=== PATIENT | female | born 1955 | race Caucasian/White ===

== ENCOUNTER 2018-06-15 06:24 | Inpatient (IN) ==
--- NOTE | 2018-05-27 13:43 | PAT Medication Instructions ---
Medication Instructions Date of Service May 27, 2018 Home Medications cetirizine [Zyrtec] 10 mg PO UD PRN cholecalciferol (vitamin D3) 2,000 unit PO DAILY lisinopril 5 mg PO QAM multivitamin [Multiple Vitamins] 1 tab PO DAILY naproxen sodium [Aleve] 220 mg PO UD PRN omeprazole magnesium [Prilosec OTC] 40 mg PO QAM oxycodone-acetaminophen 0.5 tab PO UD PRN ASK your surgeon for instructions naproxen sodium [Aleve] 220 mg PO UD PRN DO NOT take the morning of surgery cetirizine [Zyrtec] 10 mg PO UD PRN cholecalciferol (vitamin D3) 2,000 unit PO DAILY lisinopril 5 mg PO QAM multivitamin [Multiple Vitamins] 1 tab PO DAILY Take morning of surgery With a small sip of water, OTHERWISE NOTHING TO EAT OR DRINK AFTER MIDNIGHT: omeprazole magnesium [Prilosec OTC] 40 mg PO QAM oxycodone-acetaminophen 0.5 tab PO UD PRN (okay to take up to 4 hours prior to surgery if needed) Other Notes If you have any questions please call us at [phone] or [phone] or [phone] or [phone]
--- NOTE | 2018-05-30 09:21 | Anesthesiology Consultation ---
Date of Service May 30, 2018 Assessment & Plan (1) Encounter for pre-operative examination: Chart Review Chart Review: Acceptable Risk for Surgery and Patient seen in Pre Admission Testing Teaching & Discussion Pre-Anesthesia Teaching/Discussion Notes: Instructed NPO after midnight before surgery,except medications with 15 cc of water. Medication instructions provided according to the PAT guidelines. History Surgery Operation Date: 06/15/18 07:15 Proposed Procedures p Left Total Shoulder Replacement - Jagjit Scott, Height/Weight Height: 5 ft 5 in Weight: 85.3 kg Allergies Allergy/AdvReac Type Severity Reaction Status Date / Time Sulfa (Sulfonamide Allergy Severe "SULFA Verified 09/27/15 12:57 Antibiotics) DRUGS": ITCHING, HIVES nitrofurantoin AdvReac Unknown Nausea Unverified 05/18/18 11:24 Medications Home Medications Medication Instructions Recorded Confirmed Last Taken cetirizine [Zyrtec] 10 mg PO UD PRN 05/18/18 05/18/18 Unknown cholecalciferol (vitamin D3) 2,000 unit PO DAILY 05/18/18 05/18/18 Unknown [Vitamin D3] lisinopril 5 mg PO QAM 05/18/18 05/18/18 05/18/18 multivitamin [Multiple Vitamins] 1 tab PO DAILY 05/18/18 05/18/18 Unknown naproxen sodium [Aleve] 220 mg PO UD PRN 05/18/18 05/18/18 Unknown omeprazole magnesium [Prilosec OTC] 40 mg PO QAM 05/18/18 05/18/18 05/18/18 oxycodone-acetaminophen 0.5 tab PO UD PRN 05/18/18 05/18/18 Unknown Past Medical History Medical History Acid reflux CONTROLLED Hypertension Obesity Past Family History Family History Mother Family history of kidney cancer Family history of breast cancer Son Family history of brain cancer Father Family history of heart disease Past Surgical History Surgical History History of appendectomy History of arthroscopy of left knee History of colonoscopy History of endoscopy History of repair of right rotator cuff History of reverse total replacement of right shoulder joint Past Anesthesia History No Hx of Anesthesia Complications and No Family Hx of Anesthesia Complications History of PONV No Motion Sickness Screening History of Motion Sickness: Yes Social History Smoking Status: Never smoker Do You Dip or Chew Tobacco: No Hx Alcohol Use: Yes Alcohol type: wine alcohol intake frequency: holidays/special occasions only Hx Substance Use: No Exercise / Class Metabolic Activity II 4-5 Yardwork/Stairs/Walk up hill Review of Systems Patient denies chest pain, shortness of breath, dyspnea on exertion, cough, wheezing, palpitations. Physical Exam Vital Signs VITALS BP 121/77 P 87 TEMP 97.9 SP02 95%RA RESP 18 PHYSICAL Full neck and c-spine range of motion. Full TMJ range of motion. TMD 2.5 finger breaths Mallampati Score 2 Dentition: missing molar, crowns "all over" Lungs: clear throughout to auscultation Cardiac: regular rate and rhythm, no murmurs noted Spine: normal Carotid arteries: negative bruit Extremities: no edema Testing Electrocardiogram Date: 05/31/18 NSR at 82bpm. Chest X-Ray Date: 05/30/18 Unchanged 5 mm nodule about the basal right lower lobe suggestive of a probable granuloma. Laboratory Results 05/30/18 09:39 05/30/18 09:39 Blood Type A Positive 05/30/18 09:39 Antibody Screen NEGATIVE 05/30/18 09:39 PT 10.9 Seconds (9.0-12.0) 05/30/18 09:39 INR 1.1 (0.9-1.1) 05/30/18 09:39 APTT 24.8 Seconds (21.0-31.0) 05/30/18 09:39
[2018-05-30 10:21] LABS: Basophils # (auto) 0.04 K/uL (0-0.2); Basophils % (auto) 0.5 %; Eosinophils # (auto) 0.29 K/uL (0-0.5); Eosinophils % (auto) 3.4 %; Hematocrit (blood only) 40.4 % (37-47); Hemoglobin 13.3 g/dL (12.0-16.0); Immature Granulocytes # (auto) 0.06 K/uL (0.00-0.02); Immature Granulocytes % (auto) 0.7 %; Lymphocytes # (auto) 2.02 K/uL (1.2-3.4); Lymphocytes % (auto) 23.9 %; Mean Corpuscular Hgb Conc 32.9 g/dL (32-36); Mean Corpuscular Volume 84.7 fL (80-100); Mean Platelet Volume 10.5 fL (7.4-10.4); Monocytes # (auto) 0.61 K/uL (0.11-0.59); Monocytes % (auto) 7.2 %; Neutrophils # (auto) 5.43 K/uL (1.4-6.5); Neutrophils % (auto) 64.3 %; Platelet Count 267 K/uL (130-400); RDW Coefficient of Variation 13.4 % (11.5-14.5); RDW Standard Deviation 41.1 fL (36.4-46.3); Red Blood Count 4.77 M/uL (4.2-5.4); White Blood Count 8.45 K/uL (4.8-10.8)
--- NOTE | 2018-05-30 10:27 | XRay Report ---
XR chest 2V routine HISTORY: 63 years-old Female PREOP preoperative exam. No acute chest complaints COMPARISON: Chest radiograph 08/26/2015 TECHNIQUE: PA and lateral views of the chest FINDINGS: Cardiomediastinal and hilar silhouettes are within normal limits. There is no pneumothorax, pleural e ffusion, focal airspace consolidation or overt pulmonary edema. Unchanged 5 mm nodule about the basal right lower lobe suggestive of a probable granuloma. Degenerative changes of the left shoulder and s pine with right shoulder arthroplasty. IMPRESSION: No acute process. The above report was generated using voice recognition software. It may contain grammatical, syntax o r spelling errors. Electronically signed by: Tomasz Short M.D. 05/30/2018 10:26 AM
[2018-05-30 10:28] LABS: Calcium 8.8 mg/dl (8.5-10.1); Est GFR (African American) 85.1; Est GFR (Non-African American) 73.4; Potassium 4.5 mmol/L (3.5-5.1)
[2018-05-30 10:36] LABS: INR 1.1 (0.9-1.1); Partial Thromboplastin Ratio 0.9; Partial Thromboplastin Time 24.8 Seconds (21.0-31.0); Prothrombin Time 10.9 Seconds (9.0-12.0)
--- NOTE | 2018-06-14 19:56 | History & Physical Report ---
Date of Service June 14, 2018 Assessment & Plan (1) Primary osteoarthritis of left shoulder: We will proceed with a left total shoulder arthroplasty. Postoperatively she will be placed in a sling and kept overnight in the hospital for postoperative medical management. She plans to use energy physical therapy upon discharge. Present on Admission?: Yes History of Present Illness Chief Complaint: Primary osteoarthritis of the left shoulder Primary Care Provider: Jacy Bennett is a pleasant 63-year-old female who I did a reverse right shoulder arthroplasty on in 2015. She is done very well with that. Unfortunately she has been having a lot of left shoulder pain. The x-rays did not look too bad so I sent her for an MRI. The MRI showed severe chondrosis of the glenoid. She is failed conservative treatment including multiple injections. She is unable to sleep at night. She has elected to proceed with a left total shoulder arthroplasty. Allergies Allergy/AdvReac Type Severity Reaction Status Date / Time Sulfa (Sulfonamide Allergy Severe "SULFA Verified 09/27/15 12:57 Antibiotics) DRUGS": ITCHING, HIVES nitrofurantoin AdvReac Unknown Nausea Unverified 05/18/18 11:24 Home Medications Home Medications Medication Instructions Recorded Confirmed Type cetirizine [Zyrtec] 10 mg PO UD PRN 05/18/18 05/18/18 History cholecalciferol (vitamin D3) 2,000 unit PO DAILY 05/18/18 05/18/18 History [Vitamin D3] lisinopril 5 mg PO QAM 05/18/18 05/18/18 History multivitamin [Multiple Vitamins] 1 tab PO DAILY 05/18/18 05/18/18 History naproxen sodium [Aleve] 220 mg PO UD PRN 05/18/18 05/18/18 History omeprazole magnesium [Prilosec OTC] 40 mg PO QAM 05/18/18 05/18/18 History oxycodone-acetaminophen 0.5 tab PO UD PRN 05/18/18 05/18/18 History Past Med/Surg History Medical History Acid reflux CONTROLLED Hypertension Obesity Surgical History History of appendectomy History of arthroscopy of left knee History of colonoscopy History of endoscopy History of repair of right rotator cuff History of reverse total replacement of right shoulder joint Family History Mother Family history of kidney cancer Family history of breast cancer Son Family history of brain cancer Father Family history of heart disease Social History Preferred Language: Korean Communication Ability: Effective Leather Sprayer Required: No Beliefs That Will Affect Care: None Current Living Situation: Spouse and Family Other Information That Helps Us Care for You: No Feels Safe at Home: Yes Smoking Status: Never smoker Hx Alcohol Use: Yes Hx Substance Use: No Review of Systems All systems reviewed & are unremarkable except as noted in HPI & below Physical Exam Constitutional: WD/WN, vitals as above Eyes: PERRL, conjunctivae normal, anicteric sclerae ENMT: external ear and nose normal, oropharynx normal Neck: trachea midline, no thyromegaly Respiratory: normal respiratory effort Cardiovascular: RRR, no murmur, no edema Gastrointestinal (Abdomen): normal bowel sounds, soft, nontender, no hepatosplenomegaly Musculoskeletal: Physical examination of the left shoulder reveals decreased range of motion and crepitis throughout. There is good strength with full can testing and external rotation. There is tenderness palpation along the anterior glenohumeral joint line. The right upper extremity is neurovascularly intact. Psychiatric: A+Ox3, euthymic affect Results & Data Diagnostic Findings Radiographs of the left shoulder show osteoarthritis of the glenohumeral joint. There is joint space narrowing, osteophyte formation, and [id number] articulation.
[~2018-06-15 06:24] MED LIST: ACETAMINOPHEN 500 MG TAB PO SCH; CEFAZOLIN 2000MG 2,000 MG/15 ML SYR IV SCH; FAMOTIDINE 20 MG TAB PO SCH; GABAPENTIN 300 MG x 2 PO SCH; LR 500ML BOLUS IV SCH; LR 60ML/HR IV SCH; ROPIVACAINE 0.5% HCL/PF 150 MG, BUPIVACAINE 0.5% MPF 30 ML, EPINEPHrine 30MG/30ML (OR U... INFIL SCH; TRANEXAMIC ACID 1,000 MG **IV Pre-op IV SCH
[2018-06-15] MEDS ORDERED: TRANEXAMIC ACID 1,000 MG **IV Intra-op IV SCH (06:30)
[2018-06-15] MEDS ORDERED: ROPIVACAINE 0.5% 5 MG/ML 30 ML VIAL ONE (06:35)
[2018-06-15] MEDS ORDERED: DEXAMETHASONE SOD INJ 4 MG/ML VIAL ONE ×2 (06:35→10:45)
--- NOTE | 2018-06-15 06:44 | History & Physical Bridge Note ---
Date of Service June 15, 2018 History & Physical Bridge Note I have examined the patient, reviewed the History & Physical and in the interval since the performance of the History & Physical I have noted the following changes of clinical significance: no changes noted
[2018-06-15] MEDS ORDERED: BUPIVACAINE 0.5 % 5 MG/1 ML PF 10ML VIAL ONE (09:13)
[2018-06-15] MEDS ORDERED: MIDAZOLAM HCL 1 MG/ML 2ML VIAL ONE (09:20)
[2018-06-15] MEDS ORDERED: LIDOCAINE HCL 2% MPF (LOCAL) 5 ML VIAL INFIL ONE (09:20)
[2018-06-15] MEDS ORDERED: POVIDONE-IODINE OP SOLN 30 ML BTL ONE (09:29)
[2018-06-15] MEDS ORDERED: fentaNYL citrate 100 MCG/2 ML VIAL ONE (09:40)
[2018-06-15] MEDS ORDERED: ORTHO JOINT ANESTHETIC ONE (09:49)
[2018-06-15] MEDS ORDERED: PROPOFOL IV EMULSION 10 MG/ML 20 ML VIAL IV ONE (10:08)
[2018-06-15] MEDS ORDERED: ONDANSETRON INJ 2 MG/ML 2 ML VIAL ONE (10:45)
--- NOTE | 2018-06-15 11:15 | Operative Report ---
Post Operative Report Pre & Post Diagnosis Operation Date: 06/15/18 07:15 <No data on this case meets the specified criteria> Operation Date: 06/15/18 09:05 Pre-Op Diagnosis: Left Shoulder Degenerative Joint Disease Post-Op Diagnosis: Left Shoulder Degenerative Joint Disease Procedure Operation Date: 06/15/18 07:15 <No data on this case meets the specified criteria> Operation Date: 06/15/18 09:05 Actual Procedures p Left Reverse Total Shoulder Replacement(Left) - Jagjit Scott DO Surgeon Jagjit Scott DO Residential Program Worker Jagjit Olson PAC Estimated Blood Loss 200 Findings Consistent with Post-Op Diagnosis Specimens Left humeral head Complications none Disposition Disposition: Recovery Room Indications Sabrina is a pleasant 63-year-old female who is been dealing with chronic increasing left shoulder pain. X-rays did not look too bad but MRI showed advanced osteoarthritis mostly involving the glenoid. She has a reverse shoulder replacement on her other side and is doing very well with that. The rotator cuff looked okay on the left side so we decided to proceed with a left total shoulder arthroplasty. As noted below during the procedure the glenoid bone stock was very poor. I did not have enough bone stock for even a small glenoid implant. I decided to do a reverse shoulder arthroplasty. Description of Procedure Implants used: I used a [employer] Comprehensive reverse total shoulder arthroplasty system with a size 8 press fit mini humeral stem, a standard humeral tray and a standard humeral bearing, a 25 mm mini baseplate with a 6.5 mm central screw and superior and inferior locking screws, and a size 36 mm eccentric glenosphere. The patient arrived at [facility] for the above procedure. There were seen in the preoperative holding area and the operative extremity was identified and signed. They were given a preoperative antibiotic and an interscalene nerve block. They were taken back to the operating room, laid on table in supine position, and put under general anesthesia. They were then put into the beachchair position. The shoulder was then prepped and draped in sterile fashion. A timeout was done and the patient in the operative extremity was properly identified. A deltopectoral approach was used. Dissection was taken down through the fascia and the deltoid was retracted laterally and the conjoined tendon was retracted medially. The anterior shoulder was exposed. The long head of the biceps tendon was tenodesed to the upper border of the pectoralis major. The subscapularis was then released off the lesser tuberosity with a centimeter of cuff tissue remaining. The inferior capsule was released and the humeral head was dislocated. A canal finding reamer was sent down the center of the humeral canal. Sequential reaming up to a size 8 reamer was done. Off that reamer, a proximal humeral resection guide was placed. The proximal humerus was resected at 135 of inclination and 25 of retroversion. Osteophytes were then removed and the glenoid was exposed. Time was spent doing a complete capsular and labral release. Unfortunately there was not adequate glenoid bone stock. The anterior rim of the glenoid had been fractured off. The remainder of the glenoid bone stock was very poor. I sized a small glenoid implant not feel I had enough bone stock to give it adequate stability. At this point I decided to do a reverse shoulder replacement. The glenoid guide was then placed in the inferior aspect of the glenoid. A 3.2 mm Steinmann pin was then placed into the glenoid vault at 10 of inclination. The glenoid baseplate was then reamed. The final size 25 mm mini baseplate was then impacted in the place. A 6.5 mm central screw was then placed followed by superior and inferior locking screws. A 36 mm eccentric glenoid sphere was then impacted into place. Surrounding soft tissues were then injected with 100 cc an orthopedic pain control cocktail. The proximal humerus was then exposed. Sequential broaching of the humerus up to a size 8 broach was done. Off that broach a standard humeral tray was trialed. The shoulder was then reduced, brought through a full range of motion and felt to be stable. The shoulder was then dislocated and the broach was removed. The final size 8 mini press-fit humeral stem was then impacted into place. A standard humeral bearing was then snapped onto a standard humeral tray and the ring-lock mechanism was engaged. The humeral tray was then impacted onto the humeral stem. The shoulder was once again reduced, brought through a full range of motion and felt to be stable. The subscapularis was then tenodesed back to the lesser tuberosity with transosseous FiberWire sutures and side to side sutures with the arm in 45 of external rotation. A dilute betadyne lavage was then done for 3 minutes. The joint was then irrigated with normal saline solution. Hemostasis was obtained. The skin was then closed with 2-0 Vicryl, 3-0V lock suture, and khanh. A soft dressing and a regular arm sling was placed. The patient was then extubated and transferred to a hospital bed. They were taken to the postanesthesia care unit in stable condition. They tolerated the procedure well. I attest to the content of the Intraoperative Record and any orders documented therein. Any exceptions are noted below.
--- NOTE | 2018-06-15 12:18 | XRay Report ---
XR shoulder LT min 2V routine CLINICAL HISTORY: Post shoulder surgery COMPARISON: None. DISCUSSION: There are postsurgical changes of a reverse total left shoulder arthroplasty. There are n o acute fractures or dislocations. There is aortic the soft tissues consistent with recent surgery. T here are overlying skin khanh. There are left basilar airspace opacities, likely atelectatic IMPRESSION: 1. Postsurgical changes of a total left shoulder arthroplasty 2. Left lower lobe pulmonary airspace opacities. Statistically atelectatic given history of recent smith rgery. Electronically signed by: Jono Pena M.D. 06/15/2018 12:17 PM
[2018-06-15] MEDS ORDERED: METOCLOPRAMIDE HCL INJ 5 MG/ML 2 ML VIAL IV PRN (12:34)
[2018-06-15] MEDS ORDERED: ONDANSETRON INJ 2 MG/ML 2 ML VIAL IV PRN (12:34)
[2018-06-15] MEDS ORDERED: HYDROmorphone INJ 0.5 MG/0.5 ML SYR IV PRN (12:34)
[2018-06-15] MEDS ORDERED: BISACODYL 10 MG SUPP PR PRN (12:34)
[2018-06-15] MEDS ORDERED: NALOXONE HCL 0.4 MG/1 ML VIAL/CARP IV PRN (12:34)
[2018-06-15] MEDS ORDERED: MAGNESIUM HYDROXIDE SUSP 30 ML UDC PO PRN (12:34)
[2018-06-15] MEDS: SODIUM CHLORIDE 0.9% 1000ML 1,000 ML IV SCH ×2 (12:45→21:53)
--- NOTE | 2018-06-15 12:53 | Anesthesiology Progress Note ---
Date of Service June 15, 2018 Anesthesia Post Procedure Vital Signs Vital Signs: Temp Pulse Pulse Resp BP BP Pulse Ox 06/15/18 12:36 36.4 C L 71 17 133/81 94 06/15/18 12:15 76 22 136/85 94 06/15/18 12:10 79 21 140/82 94 06/15/18 12:05 78 24 138/84 94 06/15/18 12:04 36.2 C L 79 22 138/84 94 06/15/18 12:00 81 17 139/81 97 06/15/18 11:55 81 31 H 136/88 98 06/15/18 11:50 77 11 L 133/76 99 06/15/18 11:45 80 15 134/78 98 06/15/18 11:40 80 15 140/84 99 06/15/18 11:35 83 15 131/88 98 06/15/18 11:34 36.2 C L 84 79 17 144/85 H 144/85 H 97 06/15/18 11:33 87 18 06/15/18 07:15 36.8 C 20 158/85 H 99 Pain Intensity Left Shoulder: Pain Intensity: 0 Notes Mental Status: alert / awake / arousable and participated in evaluation Patient Amnestic to Procedure: Yes Nausea / Vomiting: adequately controlled Pain: adequately controlled Airway Patency, RR, SpO2: stable & adequate BP & HR: stable & adequate Hydration State: stable & adequate Anesthetic Complications: no major complications apparent
[2018-06-15] MEDS: ACETAMINOPHEN 500 MG TAB PO SCH ×2 (13:13→21:46)
[2018-06-15] MEDS: KETOROLAC TROMETHAMINE 15 MG/ML VIAL IV SCH ×2 (13:16→20:40)
[2018-06-15] MEDS: OXYCODONE HCL IR 5 MG TAB (IMMEDIATE RELEASE) PO PRN (16:56)
[2018-06-15] MEDS: CEFAZOLIN 2000MG 2,000 MG/15 ML SYR IV SCH (17:36)
[2018-06-15] MEDS: DOCUSATE SODIUM 100 MG CAP PO SCH (20:39)
[2018-06-15] MEDS ORDERED: SENNA 8.6 MG TAB PO SCH (21:00)
[2018-06-16] MEDS: KETOROLAC TROMETHAMINE 15 MG/ML VIAL IV SCH ×2 (02:06→07:07)
[2018-06-16] MEDS: CEFAZOLIN 2000MG 2,000 MG/15 ML SYR IV SCH (02:06)
[2018-06-16] MEDS: ACETAMINOPHEN 500 MG TAB PO SCH (05:55)
[2018-06-16] MEDS: DOCUSATE SODIUM 100 MG CAP PO SCH (07:08)
[2018-06-16 07:43] LABS: Basophils # (auto) 0.01 K/uL (0-0.2); Basophils % (auto) 0.1 %; Hematocrit (blood only) 36.2 % (37-47); Immature Granulocytes # (auto) 0.06 K/uL (0.00-0.02); Immature Granulocytes % (auto) 0.3 %; Lymphocytes # (auto) 1.03 K/uL (1.2-3.4); Lymphocytes % (auto) 5.7 %; Mean Corpuscular Hgb Conc 33.1 g/dL (32-36); Mean Corpuscular Volume 85.2 fL (80-100); Mean Platelet Volume 10.6 fL (7.4-10.4); Monocytes # (auto) 1.05 K/uL (0.11-0.59); Monocytes % (auto) 5.8 %; Neutrophils # (auto) 16.07 K/uL (1.4-6.5); Neutrophils % (auto) 88.1 %; Platelet Count 188 K/uL (130-400); RDW Coefficient of Variation 13.7 % (11.5-14.5); RDW Standard Deviation 42.9 fL (36.4-46.3); Red Blood Count 4.25 M/uL (4.2-5.4); White Blood Count 18.22 K/uL (4.8-10.8)
[2018-06-16 08:16] LABS: BUN Creatinine Ratio 12.8 (10-20); Calcium 8.7 mg/dl (8.5-10.1); Est GFR (African American) 91.7; Est GFR (Non-African American) 79.1; Potassium 3.7 mmol/L (3.5-5.1)
--- NOTE | 2018-06-16 08:24 | Anesthesiology Progress Note ---
Date of Service June 16, 2018 Anesthesia Post Procedure Vital Signs Vital Signs: Temp Pulse Pulse Resp BP BP Pulse Ox 06/16/18 07:49 36.8 C 74 18 115/70 94 06/16/18 02:56 36.4 C L 65 16 125/76 94 06/15/18 23:24 36.5 C 79 22 111/69 96 06/15/18 19:32 36.5 C 72 18 115/71 94 06/15/18 15:44 36.3 C L 78 18 135/81 95 06/15/18 14:29 79 16 123/74 95 06/15/18 13:45 75 16 116/76 95 06/15/18 13:15 36.2 C L 73 15 121/75 99 06/15/18 12:36 36.4 C L 71 17 133/81 94 06/15/18 12:15 76 22 136/85 94 06/15/18 12:10 79 21 140/82 94 06/15/18 12:05 78 24 138/84 94 06/15/18 12:04 36.2 C L 79 22 138/84 94 06/15/18 12:00 81 17 139/81 97 06/15/18 11:55 81 31 H 136/88 98 06/15/18 11:50 77 11 L 133/76 99 06/15/18 11:45 80 15 134/78 98 06/15/18 11:40 80 15 140/84 99 06/15/18 11:35 83 15 131/88 98 06/15/18 11:34 36.2 C L 84 79 17 144/85 H 144/85 H 97 06/15/18 11:33 87 18 Pain Intensity Left Shoulder: Pain Intensity: 1 Notes Mental Status: alert / awake / arousable and participated in evaluation Nausea / Vomiting: adequately controlled Pain: adequately controlled Airway Patency, RR, SpO2: stable & adequate BP & HR: stable & adequate Hydration State: stable & adequate Neuraxial Anesthesia: sensory block is resolving Anesthetic Complications: Pt Satisfied with anesthetic care
[2018-06-16] MEDS ORDERED: LISINOPRIL 5 MG TAB PO SCH (09:00)
[2018-06-16] MEDS ORDERED: MULTIVITAMIN TAB PO SCH (09:00)
[2018-06-16] MEDS ORDERED: PANTOprazole 40 MG TAB PO SCH (09:00)
--- NOTE | 2018-06-16 10:16 | Orthopedic Progress Note ---
Date of Service June 16, 2018 Assessment & Plan (1) Primary osteoarthritis of left shoulder: Overall she is doing very well. Is not having much pain in the shoulder. She will be seen by physical therapy today to do range of motion exercises. She will be discharged to home after physical therapy. She will follow-up with orthopedics in 2 weeks. Present on Admission?: Yes Steffi Bennett was seen and examined at bedside this morning. Overall she is doing fairly well. She does not have any pain in the shoulder. She does have a headache. She has no other complaints. Physical Exam Vital Signs (Past 24 Hours): Last Vital Signs Temp 36.8 C 06/16/18 07:49 Pulse 74 06/16/18 07:49 Resp 18 06/16/18 07:49 BP 115/70 06/16/18 07:49 Pulse Ox 94 06/16/18 07:49 Musculoskeletal: On physical examination of the left shoulder, the dressing is clean and dry. Her radial, median, and ulnar nerves are all checked and intact at the wrist. Her axillary nerve was not checked yet. She is wearing her sling as instructed. Results & Data Laboratory Results H & H 05/30/18 06/16/18 Range/Units 09:39 07:02 Hgb 13.3 12.0 (12.0-16.0) g/dL Hct 40.4 36.2 L (37-47) % Coagulation 05/30/18 Range/Units 09:39 INR 1.1 (0.9-1.1) Diagnostic Findings X-rays postoperatively of the left shoulder show the prosthesis to be in anatomic alignment without any evidence of fracture, dislocation, or loosening.
--- NOTE | 2018-06-16 10:17 | Discharge Summary ---
Date of Service June 16, 2018 Admission HPI Per Admitting Provider Sabrina is a pleasant 63-year-old female who I did a reverse right shoulder arthroplasty on in 2015. She is done very well with that. Unfortunately she has been having a lot of left shoulder pain. The x-rays did not look too bad so I sent her for an MRI. The MRI showed severe chondrosis of the glenoid. She is failed conservative treatment including multiple injections. She is unable to sleep at night. She has elected to proceed with a left total shoulder arthroplasty. Specialty Data Orthopedic H & H 05/30/18 06/16/18 Range/Units 09:39 07:02 Hgb 13.3 12.0 (12.0-16.0) g/dL Hct 40.4 36.2 L (37-47) % Coagulation 05/30/18 Range/Units 09:39 INR 1.1 (0.9-1.1) Discharge Data Consultations 06/15/18 12:34 Consult Case Management - Discharge Planning Routine Procedures Performed Operation Date: 06/15/18 07:15 <No data on this case meets the specified criteria> Operation Date: 06/15/18 09:05 Actual Procedures p Left Reverse Total Shoulder Replacement(Left) - Jagjit Scott DO Hospital Course (1) Primary osteoarthritis of left shoulder: On June 15, 2018 Sabrina arrived at [facility] and underwent a left reverse shoulder arthroplasty without complication. She had a general anesthetic and a left interscalene nerve block. Postoperatively she was placed in a sling and discharged to general orthopedic floors. Her hospital course was uneventful. On postop day #1 her H&H was stable and her pain was well controlled. She was able to participate well with physical therapy doing range of motion exercises. She was then discharged to home. She will follow-up with orthopedics in 2 weeks. Discharge Instructions Home Medications Medication Instructions Recorded Confirmed cetirizine [Zyrtec] 10 mg PO UD PRN 05/18/18 06/15/18 cholecalciferol (vitamin D3) 2,000 unit PO DAILY 05/18/18 06/15/18 [Vitamin D3] lisinopril 5 mg PO QAM 05/18/18 06/15/18 multivitamin [Multiple Vitamins] 1 tab PO DAILY 05/18/18 06/15/18 naproxen sodium [Aleve] 220 mg PO UD PRN 05/18/18 06/15/18 omeprazole magnesium [Prilosec OTC] 40 mg PO QAM 05/18/18 06/15/18 oxycodone-acetaminophen 0.5 tab PO UD PRN 05/18/18 06/15/18 Previous Rx's Medication Instructions Recorded oxycodone 5 - 10 mg PO Q4H PRN #40 tab 06/16/18
[2018-06-16] MEDS: OXYCODONE HCL IR 5 MG TAB (IMMEDIATE RELEASE) PO PRN (10:38)
== END 2018-06-16 11:13 | disposition home or self-care (01) | DRG 483 ==
LOC: ASU 06:24 → 3E 12:21